=== PATIENT | female | born 1950 | race Caucasian/White ===

== ENCOUNTER 2019-09-30 05:35 | Observation (INO) | payer MEDICARE ==
[2019-09-24 12:16] LABS: BASOPHILS % 0.8 % (0.0-1.0); EOSINOPHILS # (AUTO) 0.1 (0.0-0.4); EOSINOPHILS % 2.4 % (0.0-6.0); HEMATOCRIT 44.1 % (34.2-44.1); HEMOGLOBIN 14.1 g/dL (12.0-16.0); LYMPHOCYTES # (AUTO) 1.4 (1.0-3.2); LYMPHOCYTES % 27.7 % (18.0-39.1); MEAN CORPUSCULAR HEMOGLOBIN 29.5 pg (28-32); MEAN CORPUSCULAR VOLUME 92.3 fL (81-99); MONOCYTES # (AUTO) 0.4 (0.2-0.8); MONOCYTES % 8.2 % (4.4-11.3); NEUTROPHILS # (AUTO) 3.1 (2.1-6.9); NEUTROPHILS % 60.7 % (38.7-80.0); PLATELET COUNT 196 x10e3/uL (140-360); RED BLOOD COUNT 4.78 x10e6/uL (3.6-5.1)
--- NOTE | 2019-09-24 14:57 | Diagnostic Imaging Report ---
EXAMINATION: CHEST 2 VIEWS INDICATION: Pre-operative COMPARISON: None FINDINGS: LINES/TUBES:None LUNGS:The lungs are well-inflated. No focal consolidation or pulmonary edema. PLEURA:No pleural effusion or pneumothorax. MEDIASTINUM:The cardiomediastinal silhouette appears normal in size and shape. Atherosclerotic calcifications of the thoracic aorta. BONES/SOFT TISSUES:No acute osseous injury. ABDOMEN:No free air under the diaphragm. IMPRESSION: No focal pneumonia or pulmonary edema. Signed by: Aparna Lorenzana MD on 09/24/2019 2:54 PM
[~2019-09-30] VITALS: Ht 170.2 cm; Wt 99.5 kg
[~2019-09-30 05:35] MED LIST: AMANTADINE100 MG PEG; COLACE100 MG PO; SINEMET 25-1001 EACH PO
--- OUTSIDE RECORDS SUMMARY | 2019-09-30 05:37 | XMS REPORT ---
Author Author [facility] Address Unknown Phone Unavailable Care Team Providers Care Chief Quality Officer Name Role Phone CHARI COUGHLIN Unavailable Unavailable Problems This patient has no known problems. Allergies, Adverse Reactions, Alerts This patient has no known allergies or adverse reactions. Medications This patient has no known medications. Results Test Description Test Time Test Comments Text Results Atomic Results Result Comments CHEST 2 VIEWS 2019-09-24 14:53:00 [place] [address] Patient Name: HARDY FREEMAN MR #: [id number] : 1950 Age/Sex: 68/F Req #: [id number] Adm Physician: Ordered by: CHARI COUGHLIN MD Report #: [id number] Location: OR Room/Bed: Procedure: [id number] DX/CHEST 2 VIEWS Exam Date: 09/24/19 Exam Time: 1250 REPORT STATUS: Signed EXAMINATION: CHEST 2 VIEWS INDICATION: Pre-operative COMPARISON: None FINDINGS: LINES/TUBES:None LUNGS:The lungs are well-inflated. No focal consolidation or pulmonary edema. PLEURA:No pleural effusion or pneumothorax. MEDIASTINUM:The cardiomediastinal silhouette appears normal in size and shape. Atherosclerotic calcifications of the thoracic aorta. BONES/SOFT TISSUES:No acute osseous injury. ABDOMEN:No free air under the diaphragm. IMPRESSION: No focal pneumonia or pulmonary edema. Signed by: Leanne Lorenzana MD on 09/24/2019 2:54 PM Dictated By: LEANNE LORENZANA MD [id number] Transcribed By: SMITA on 09/24/191453 COPY TO: CHARI COUGHLIN MD
[2019-09-30] MEDS ORDERED: CELECOXIB 200 MG CAP ONE (06:58)
[2019-09-30] MEDS ORDERED: DEXAMETHASONE SOD PHOS 10 MG/1 ML VIAL ONE (06:58)
[2019-09-30] MEDS ORDERED: GABAPENTIN 300 MG CAP ONE (06:59)
[2019-09-30] MEDS ORDERED: CEFAZOLIN SOD 1 GM/NS 50ML 100 ML IV ONE (06:59)
[2019-09-30] MEDS ORDERED: ROPIVACAINE 246.25 MG, EPINEPHRINE HCL 1:1000 1ML 0.5 MG, CLONIDINE HCL 0.08 MG, KETORO... INJ ONE ×5 (07:30)
[2019-09-30] MEDS ORDERED: SODIUM CHLORIDE 0.9% 500ML 500 ML ONE (07:50)
[2019-09-30] MEDS ORDERED: VANCOMYCIN HCL 1,000 MG ONE (07:50)
[2019-09-30] MEDS ORDERED: TRANEXAMIC ACID 1,000 MG/10 ML ML ONE (07:50)
[2019-09-30] MEDS ORDERED: BACITRACIN 50,000 UNIT VIAL ONE (07:51)
[2019-09-30] MEDS ORDERED: DIPHENHYDRAMINE HCL INJ 50 MG/ML VIAL IM/IV PRN (10:15)
[2019-09-30] MEDS ORDERED: ONDANSETRON HCL INJ 2MG/ML 2ML 2 MG/ML VIAL IV PRN (10:15)
[2019-09-30] MEDS ORDERED: ZOLPIDEM TARTRATE 5 MG TAB PO PRN (10:15)
[2019-09-30] MEDS ORDERED: PROMETHAZINE HCL (IM) 25 MG/ML VIAL IM PRN (10:15)
[2019-09-30] MEDS ORDERED: KETOROLAC TROMETHAMINE 30 MG/ML VIAL IV PRN (10:15)
[2019-09-30] MEDS ORDERED: DOCUSATE SODIUM 100 MG CAP PO PRN (10:15)
--- NOTE | 2019-09-30 10:58 | Diagnostic Imaging Report ---
Left knee, 2 views Clinical indication: Postoperative evaluation, left knee arthroplasty Comparison: None Findings: AP and lateral views of the left knee were obtained. The patient is status post cemented left total knee arthroplasty. No periprosthetic fractures are identified. Alignment is anatomic. Impression: Status post left total knee arthroplasty. Anatomic alignment. Signed by: Herberth Ledesma MD on 09/30/2019 10:54 AM
--- NOTE | 2019-09-30 11:13 | NUR ---
RECEIVED TO RM AAOX3 NO DISTRESS NOTED UPDATED ON POC VOCIED UNDERSTANDING, DSG TO L KNEE C/D/I, KAMERON PAIN AT THIS TIME, CALL LIGHT IN REACH WILL CONTINUE TO MONITOR
[2019-09-30 11:53] VITALS: BP 154/75
--- NOTE | 2019-09-30 12:06 | Operative Report ---
DATE OF PROCEDURE: 09/30/2019 SURGEON: Aguilar Hernandez MD OAK TANNER: Iban Dc, certified PA. PREOPERATIVE DIAGNOSIS: Osteoarthritis, left knee. POSTOPERATIVE DIAGNOSIS: Osteoarthritis, left knee. PROCEDURE: Left total knee arthroplasty. INDICATIONS: The patient is a 68-year-old lady, who has end-stage arthritis of her left knee. She has failed conservative management and would like to proceed with a left total knee replacement. The risks and benefits have been explained. The recovery has been discussed. She is status post a right knee replacement by another physician. She states she generally understands the procedure and the associated risk. She wishes to proceed. PROCEDURE IN DETAIL: The patient was brought to the operating room and placed under general anesthetic. She received tranexamic acid, prophylactic antibiotics, and a regional block in the holding area. Her left lower extremity was prepped and draped in a sterile manner. A preoperative time-out was performed. The extremity was exsanguinated and a proximal tourniquet was inflated to 300 mmHg. An anterior incision with a medial parapatellar arthrotomy was performed. A large joint effusion of clear synovial fluid was evacuated. Soft tissue releases were performed to bring the knee up into flexion with the patella everted. A slightly more aggressive varus release was necessary due to the deformity. 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 Meniscal remnants and marginal osteophytes were removed. An extramedullary cutting guide was used to resect the proximal tibia. Due to the patient's limited motion and medial wear, a +2 mm cut was made. The tibial base plate was a size #5. The central fin punch was impacted and attention was directed towards the distal femur. An intramedullary cutting guide was used to resect the distal femur in 6 degrees of valgus and rotation referencing off a combination of landmarks including Whitesides line, the epicondylar axis, and the posterior condyles. The femoral component was a size #6. The anterior, posterior, and notch cuts were made. Trial reductions were performed. A 9 mm posterior stabilized tibial insert provided appropriate soft tissue balancing in full extension and 90 degrees of flexion. The patella was then resurfaced with a 29 mm x 7.5 mm patellar button. The thickness was checked before and after and was right around 25 mm. Patellar tracking was concentric. The trial implants were removed and a 100 mL premixed pericapsular MAYA injection was placed into the surrounding soft tissue. The knee was thoroughly irrigated with a shower tip pulsatile lavage. All bone cuts had been irrigated with a diluted mixture of polymyxin and vancomycin spray. The components were cemented into place using a single mix of high viscosity Biomet cement preloaded with antibiotics. Care was taken to remove extravasated cement. The wound was further irrigated while the cement cured. The arthrotomy was then closed after sprinkling 500 mg of vancomycin powder into the joint. A #1 Ethibond in an interrupted fashion was used. The knee was put through flexion and extension to ensure a secure closure. The skin was closed with subcuticular Vicryl and fadi. A sterile bandage was applied. The patient was extubated and transported to the recovery room in stable condition. Blood loss was minimal. All needle and sponge counts were correct. Aguilar Hernandez MD DR/MANDI /[id number]
[2019-09-30] MEDS: SODIUM CHLORIDE 0.9% 1000ML 1,000 ML IV SCH ×2 (12:56→22:00)
[2019-09-30] MEDS: ACETAMINOPHEN 1000 MG/100 ML IV SCH ×2 (12:57→17:31)
[2019-09-30] MEDS ORDERED: ACETAMINOPHEN 1000 MG/100 ML IV ONE (13:38)
[2019-09-30] MEDS ORDERED: ONDANSETRON HCL INJ 2MG/ML 2ML 2 MG/ML VIAL ONE (13:38)
[2019-09-30] MEDS ORDERED: HYDRALAZINE HCL 20 MG/ML VIAL ONE (13:38)
[2019-09-30] MEDS ORDERED: PROPOFOL IV EMULSION 10 MG/ML 20 ML VIAL ONE (13:38)
[2019-09-30] MEDS ORDERED: SEVOFLURANE INHAL SOLN 250 ML PEN BTL ONE (13:38)
[2019-09-30] MEDS ORDERED: DEXAMETHASONE SOD PHOS INJ 4 MG/ML VIAL ONE (13:38)
[2019-09-30] MEDS ORDERED: LIDOCAINE HCL 2% LOCAL INJ 5 ML SDV VIAL INJ ONE (13:38)
[2019-09-30] MEDS: CEFAZOLIN SOD 1 GM/NS 50ML 50 ML IV SCH ×2 (14:00→22:00)
[2019-09-30] MEDS: AMANTADINE HCL 100 MG CAP PEG SCH ×2 (15:00→21:00)
[2019-09-30 15:19] VITALS: BP 150/74
[2019-09-30] MEDS: DOCUSATE SODIUM 100 MG CAP PO SCH ×2 (15:40→21:00)
[2019-09-30] MEDS: CARBIDOPA/LEVODOPA 25/100 TAB PO SCH ×2 (15:40→21:00)
[2019-09-30] MEDS: CELECOXIB 200 MG CAP PO SCH (16:15)
[2019-09-30] MEDS: ASPIRIN 325 MG TAB PO SCH (16:16)
[2019-09-30 17:48] VITALS: BP 124/63
--- NOTE | 2019-09-30 19:15 | NUR ---
Bedside rounds completed with morning nurse. Pt alert and oriented to name call. lying in bed HOB 60 degrees. c/o mild pain in left TKA. Call light within reach. Family at bedside. Bed low and locked. CPM taken off left knee. Will continue to monitor.
[2019-09-30] MEDS ORDERED: ROPIVACAINE 0.5% 5 MG/ML 30 ML SDV ONE (19:25)
[2019-09-30] MEDS ORDERED: LIDOCAINE 2% /EPINEPHRINE 20 ML SDV INJ ONE (19:25)
[2019-09-30 20:00] VITALS: BP 107/59
[2019-09-30] MEDS ORDERED: FENTANYL CITRATE/PF 100MCG/2 ML INJ ONE (20:10)
[2019-09-30] MEDS ORDERED: MIDAZOLAM HCL 2 MG/2 ML VIAL ONE (20:10)
[2019-09-30 21:00] VITALS: BP 107/59
[2019-10-01] VITALS: BP 123/58
[2019-10-01 04:00] VITALS: BP 157/68
[2019-10-01] MEDS: CEFAZOLIN SOD 1 GM/NS 50ML 50 ML IV SCH (05:41)
[2019-10-01] MEDS: ACETAMINOPHEN 1000 MG/100 ML IV SCH ×2 (05:41)
[2019-10-01 05:49] LABS: HEMATOCRIT 37.5 % (34.2-44.1); HEMOGLOBIN 12.2 g/dL (12.0-16.0)
--- NOTE | 2019-10-01 06:45 | NUR ---
removed gregorio wrap, drsg clean and dry, applied CPM, c/o mild left knee pain.
--- NOTE | 2019-10-01 07:00 | NUR ---
RECEIVED PATIENT RESTING IN BED NO S/S OF DISTRESS. BED LOW, WHEELS LOCKED, SIDE RAILS X2. CALL LIGHT IN REACH WILL CONTINUE TO MONITOR PATIENT. CPM IN PLACE.
[2019-10-01 07:38] VITALS: BP 180/86
[2019-10-01] MEDS: DOCUSATE SODIUM 100 MG CAP PO SCH (07:44)
[2019-10-01] MEDS: CELECOXIB 200 MG CAP PO SCH (07:44)
[2019-10-01] MEDS: ASPIRIN 325 MG TAB PO SCH (07:44)
[2019-10-01] MEDS: AMANTADINE HCL 100 MG CAP PEG SCH (07:44)
[2019-10-01] MEDS: SODIUM CHLORIDE 0.9% 1000ML 1,000 ML IV SCH (07:44)
[2019-10-01] MEDS: CARBIDOPA/LEVODOPA 25/100 TAB PO SCH (07:44)
[2019-10-01] MEDS: HYDROCODONE/APAP 7.5MG-325MG 1 EA TAB PO PRN ×2 (07:45→13:35)
--- NOTE | 2019-10-01 07:45 | NUR ---
PATIENT IN TEARS, PAIN 10/10 WITH CPM. REMOVED CPM. PAIN MEDICATION GIVEN. WILL CONTINUE TO MONITOR PATIENT.
[2019-10-01 08:22] VITALS: BP 180/86
--- NOTE | 2019-10-01 10:30 | NUR ---
STEVE explained to patient, patient signed, copy to patient, org to chart
--- NOTE | 2019-10-01 11:04 | Consultation ---
DATE OF CONSULTATION: REASON FOR CONSULTATION: Postop medical management. HISTORY OF PRESENT ILLNESS: The patient is a 68-year-old lady, status post left knee arthroplasty for end-stage osteoarthritis. She is doing well postoperatively with minimal pain in the left knee. She denies any fever, chills, nausea, vomiting, headache, shortness of breath, or dizziness. PAST MEDICAL HISTORY: Significant for Parkinson. CURRENT MEDICATIONS: Amantadine 100 mg 3 times a day. ALLERGIES: NONE. SOCIAL HISTORY: Nonsmoker. . Lives at home with her . FAMILY HISTORY: Noncontributory at this time. PHYSICAL EXAMINATION: VITAL SIGNS: Temperature is 97.4, pulse 52, blood pressure 123/58, and saturations 98% on room air. GENERAL: No apparent distress, lying in bed. NECK: Supple. No lymphadenopathy. CARDIOVASCULAR: Regular rate and rhythm. LUNGS: Clear to auscultation bilaterally. ABDOMEN: Good bowel sounds. Soft and nontender. EXTREMITIES: No clubbing or cyanosis. NEUROLOGIC: Moves all extremities x4. She does have some tremors, mostly to the right upper extremity while lying in bed. ASSESSMENT/PLAN: 1. Anemia. We will check a CBC. 2. Parkinson. We will restart her medicines at discharge with her amantadine. 3. Bradycardia. We will continue to monitor since she is asymptomatic. 4. Left knee pain. We will continue with physical therapy and pain control. Please see hospital chart for full details. MD LACY Woodward/MANDI /[id number]
[2019-10-01] MEDS ORDERED: HYDROCODONE/APAP 5MG-325MG TAB PO PRN (12:00)
[2019-10-01] MEDS ORDERED: ACETAMINOPHEN 650 MG SUPP PR PRN (12:00)
[2019-10-01] MEDS ORDERED: ACETAMINOPHEN 1000 MG/100 ML IV PRN (12:00)
--- NOTE | 2019-10-01 12:04 | NUR ---
Spoke with Ms Bustillos. Naomie with home care providers has already met with patient and home health is set up. Lokesh with [employer] is delivering DME now. All info on facesheet correct.
[2019-10-01 13:51] VITALS: BP 148/67
--- NOTE | 2019-10-01 14:00 | NUR ---
REMOVED PATIENTS IV. CATHETER TIP INTACT AND PRESSURE DRESSING APPLIED.
--- NOTE | 2019-10-01 14:20 | NUR ---
PATIENT DISCHARGED FROM FACILITY. PATIENT GATHERED ALL PERSONAL BELONGINGS, DISCHARGE INSTRUCTIONS AND FOLLOW UP INFORMATION. PATIENT LEFT UNIT IN WHEELCHAIR AND WENT HOME VIA PRIVATE AUTO. NO SIGNS OF DISTRESS WHEN LEAVING FACILITY.
== END 2019-10-01 14:37 | disposition home health service (06) ==
LOC: OR 05:35 → PACU V 10:11 → MED/SURG 11:13
PROVIDERS: ADMIT Specialist; ATTEND Specialist
DX: M17.0 Bilateral primary osteoarthritis of knee (principal); G20 Parkinson's disease; G62.9 Polyneuropathy, unspecified
CPT/HCPCS: 27447; 36415 ×2; 71046; 73560; 85014; 85018; 85025; 86850; 86900; 86920; 93005 ×2; 97110; 97116; 97139 ×2; 97161; 97530 ×2; C1713; G0378 ×2; J0131 ×2; J0171; J0360; J0690 ×2; J1100 ×2; J1885; J2001 ×2; J2250; J2405; J2704; J2795; J3010; J3370; J7030; J7040